=== PATIENT | female | born 1970 | race Caucasian/White ===

== ENCOUNTER 2019-04-24 08:13 | Outpatient (CLI) | payer BC ==
--- NOTE | 2019-04-24 10:11 | CT ---
CT ABDOMEN WITH CONTRAST CT PELVIS WITH CONTRAST: DATE: 04/24/19 HISTORY: 48-year-old female with left lower quadrant abdominal pain. COMPARISON: None available. TECHNIQUE: IV injection of iodinated contrast media: Isovue 370. Oral contrast media: Administered. FINDINGS: The left colon is collapsed from the splenic flexure through the descending colon and rectosigmoid. T hese segments of colon appear to have diffuse mural thickening, but that appearance could be due to c ontracted state. There is no pericolonic fat stranding. There is no evidence of colonic diverticuliti s. No distal colonic diverticula are visualized. The right colon is normal in appearance. The appendix, kidneys, abdominal aorta, urinary bladder, adr enals, pancreas, and spleen are normal. Hepatic attenuation is diffusely low consistent with fatty li venita. No other hepatic abnormality. Lung bases are clear. No ascites or pneumoperitoneum. No small bow el dilation. No destructive osseous lesion. There is no adnexal mass. The uterus is not enlarged. No high grade DJD of the hips. There is high gr john neural foraminal stenosis bilaterally at L4-5. IMPRESSION: 1. Apparent mural thickening of left colon could be entirely due to contraction and collapse, but th ere is a possibility that this could represent a left hemicolitis. 2. Hepatic steatosis. 3. No other abnormality. JNR POS: AMARA
[2019-04-24] MEDS ORDERED: Iopamidol-370 76% 500 ML 1 ML ONE (13:17)
== END 2019-04-24 08:14 | disposition home or self-care (01) ==
LOC: BICCT 08:13
PROVIDERS: ATTEND Obstetrics & Gynecology
DX: R10.32 Left lower quadrant pain (principal); K63.89 Other specified diseases of intestine; K76.0 Fatty (change of) liver, not elsewhere classified
CPT/HCPCS: 74177; Q9967